=== PATIENT | female | born 1955 | race Caucasian/White ===

== ENCOUNTER 2018-11-22 12:05 | Inpatient (IN) ==
[2018-11-22 12:20] VITALS: BMI 25.8
--- NOTE | 2018-11-22 13:09 | ED.PDOC ---
General ED Provider: Dr. LEO STALEY Chief Complaint: Dizziness Stated Complaint: Dizziness and lightheadedness. Room spinning arround. Nausea no emesis or dyspnea. Denies Chest pain Mode of Arrival: Wheelchair Information Source: Patient Primary Care Provider: SHEY HATCH Nursing and Triage Documentation Reviewed and Agree: Yes System Inflammatory Response Syndrome: Not Applicable Sepsis Protocol: For patient's 13 years and over: Temp is 96.8 and below OR 101 and greater Pulse >90 BPM Resp >20/minute Acutely Altered Mental Status Are patient's symptoms suggestive of a new infection, such as: -Pneumonia -Skin, Soft Tissue -Endocarditis -UTI -Bone, Joint Infection -Implantable Device -Acute Abdominal Infection -Wound Infection -Meningitis -Blood Stream Catheter Infection -Unknown Past Medical History - Past Medical History Last Menstrual Period: menopause - Social History Smoking Status: Current every day smoker, Heavy tobacco smoker Hx Substance Use: No Alcohol Screening: Occasionally Physical Exam - Physical Exam Appearance: Well-appearing, Obese Ill-appearing: Mild Pain Distress: Mild Eyes: MICHAEL (Neg nystagmus ), EOMI, Conjunctiva clear ENT: Ears normal, Nose normal, Oropharynx normal Neck: Supple Respiratory: Airway patent, Breath sounds clear, Breath sounds equal Cardiovascular: RRR, Pulses normal, No rub, No murmur, Tachycardia GI/: Soft, Nontender, No masses, Bowel sounds normal, No Organomegaly Musculoskeletal: Normal strength, ROM intact, No edema, No calf tenderness Skin: Warm, Dry, Normal color Neurological: Sensation intact, Motor intact, Reflexes intact, Alert, Oriented Psychiatric: Affect appropriate, Mood appropriate, Anxious Course - Course Hematology/Chemistry: 11/22/18 12:50 11/22/18 12:50 Orders, Labs, Meds: Lab Review 11/22/18 11/22/18 12:50 12:50 WBC 15.43 H RBC 4.47 Hgb 14.1 Hct 40.9 MCV 91.5 MCH 31.5 H MCHC 34.5 RDW Coeff of Yanna 12.9 Plt Count 244 Immature Gran % (Auto) 0.3 Neut % (Auto) 78.4 Lymph % (Auto) 13.6 Casey % (Auto) 6.5 Eos % (Auto) 0.7 Baso % (Auto) 0.5 Immature Gran # (Auto) 0.1 Neut # (Auto) 12.1 H Lymph # (Auto) 2.1 Casey # (Auto) 1.0 Eos # (Auto) 0.1 Baso # (Auto) 0.1 Sodium 142.9 Potassium 4.18 Chloride 106.1 Carbon Dioxide 25.2 Anion Gap 15.78 BUN 12.5 Creatinine 0.68 Estimated GFR (MDRD) 87.00 BUN/Creatinine Ratio 18.38 Glucose 122.6 H Calcium 8.90 Total Bilirubin 0.38 AST 22.3 ALT 22.9 Alkaline Phosphatase 75.4 Total Creatine Kinase 29.6 L Troponin I < 0.012 Total Protein 7.25 Albumin 4.40 Globulin 2.85 Albumin/Globulin Ratio 1.54 Orders Category Date Time Status EKG-(ED ONLY) Stat CARDIO 11/22/18 13:13 Completed ED APPLY O2 .ONCE EMERGENCY 11/22/18 13:13 Active ED BONE CHAR KILN TENDER APPLIED .ONCE EMERGENCY 11/22/18 13:13 Active ED IV/MEDIPORT/POWERPORT .ONCE EMERGENCY 11/22/18 13:13 Active CBC W/ AUTO DIFF Stat LAB 11/22/18 12:50 Completed COMPREHENSIVE METABOLIC PANEL Stat LAB 11/22/18 12:50 Completed CREATINE KINASE Stat LAB 11/22/18 12:50 Completed TROPONIN I Stat LAB 11/22/18 12:50 Completed 0.9 % Sodium Chloride [Saline Flush] MEDS 11/22/18 13:13 Ordered 1 syr IVF PRN PRN Alprazolam [Xanax] MEDS 11/22/18 14:32 Discontinued 0.5 mg PO ONCE STA Sodium Chloride 0.9% [Sodium Chloride] 1,000 ml MEDS 11/22/18 13:13 Discontinued IV BOLUS CHEST, 1V AP ONLY Stat RADS 11/22/18 13:13 Completed Medications Generic Name Dose Route Start Last Admin Trade Name Freq PRN Reason Stop Dose Admin Sodium Chloride 1 syr 11/22/18 13:13 Saline Flush IVF PRN PRN To flush IV Discontinued Medications Generic Name Dose Route Start Last Admin Trade Name Freq PRN Reason Stop Dose Admin Alprazolam 0.5 mg 11/22/18 14:32 Xanax PO 11/22/18 14:33 ONCE STA Sodium Chloride 1,000 mls @ 1,000 mls/hr 11/22/18 13:13 11/22/18 13:28 Sodium Chloride IV 11/22/18 14:12 1,000 mls/hr BOLUS STA Administration Vital Signs: Temp Pulse Resp BP Pulse Ox 11/22/18 12:14 97.4 F L 74 20 221/105 H 98 NIRU Risk Score NIRU Risk Score: Risk Score Odds of by 30D 0 0.1 (0.1-0.2) 1 0.3 (0.2-0.3) 2 0.4 (0.3-0.5) 3 0.7 (0.6-0.9) 4 1.2 (1.0-1.5) 5 2.2 (1.9-2.6) 6 3.0 (2.5-3.6) 7 4.8 (3.8-6.1) Departure - Departure Time of Disposition: 14:30 Disposition: ADMITTED INPATIENT Discharge Problem: Dizziness, ST segment abnormality, Ischemic heart disease Condition: Fair Pt referred to PMD for follow-up: Yes (DR HATCH FOR ADMISSION) Allergies/Adverse Reactions: Allergies acetaminophen [From Lortab] Adverse Reaction (Verified 11/22/18 12:22) codeine Adverse Reaction (Verified 11/22/18 12:22) hydrochlorothiazide [From Ziac] Adverse Reaction (Verified 11/22/18 12:22) lisinopril Adverse Reaction (Verified 11/22/18 12:22) metronidazole [From Flagyl] Adverse Reaction (Verified 11/22/18 12:22) propoxyphene [From Darvocet-N] Adverse Reaction (Verified 11/22/18 12:22) Home Medications: Ambulatory Orders Alprazolam [Xanax] 0.25 mg PO BID PRN 11/22/18 Atorvastatin Calcium [Lipitor] 40 mg PO DAILY 11/22/18 Esomeprazole Magnesium [Nexium] 40 mg PO DAILY 11/22/18 Estrogens, Conjugated [Premarin Vaginal Cream] 1 applic VG DIRECTED 11/22/18 Multivitamin/Iron/Folic Acid [Centrum Adults Tablet] 1 each PO DAILY 11/22/18 [place]-3/Dha/Epa/Fish Oil [Fish Oil 500 mg Softgel] 1 each PO DAILY 11/22/18 Sucralfate [Carafate] 1 gm PO QID 11/22/18 Disposition Discussed With: Patient, Family Neurological Complaint Exam - Dizziness Complaint/Exam Onset: Gradual Symptoms Are: Still present Timing: Intermittent Episodes Lasting: Minutes Initial Severity: Moderate Current Severity: Moderate Character: Reports: Head spinning, Lightheaded, Weak, Dizzy Aggravating: Reports: Exertion, Headache, Position change, Supine to erect, Change in head position Alleviating: Reports: Rest, Lying down, Closing eyes Associated Signs and Symptoms: Reports: Nausea. Denies: Vomiting, GI blood loss , Visual changes Cardiac Risk Factors: Reports: Hypertension CVA Risk Factors: Reports: None Related Surgical History: Reports: None JVD Present: No Carotid Bruit Present: Yes Nystagmus Present: No Gag Reflex Present: Yes Meningeal Signs Positive: No Focal Weakness: Present: None Focal Sensory Loss: Present: None Gait: Normal Dmlsgp-es-Medh: Normal Findings
[2018-11-22] MEDS ORDERED: SODIUM CHLORIDE 1,000 ML IV STA (13:13)
--- NOTE | 2018-11-22 13:51 | DI ---
EXAM: Portable chest. HISTORY: Dizziness. COMPARISON: None. TECHNIQUE:A single portable AP view of the chest. FINDINGS: Lungs: The lung voulmes are normal. The lungs are clear without consolidation or effusion. There are no suspicious nodules. The pulmonary interstitium is within normal limits. There is no pneumothorax. Cardiovascular: The heart size and pulmonary vasculature is normal.. The aorta is unremarkable. Gissell: Normal. Osseous structures. Normal for age. IMPRESSION: No acute pulmonary disease.
[2018-11-22] MEDS ORDERED: XANAX PO STA (14:32)
[2018-11-22] MEDS ORDERED: SODIUM CHLORIDE 500 ML IV STA (14:50)
[2018-11-22] MEDS ORDERED: XANAX PO PRN (15:23)
[2018-11-22] MEDS ORDERED: LOVENOX ONE (16:36)
[2018-11-22] MEDS ORDERED: LOPRESSOR ONE (16:36)
[2018-11-22] MEDS ORDERED: CARAFATE ONE (16:37)
[2018-11-22] MEDS ORDERED: VALIUM ONE (16:37)
[2018-11-22] MEDS ORDERED: ANTIVERT ONE (16:37)
[2018-11-22] MEDS ORDERED: COZAAR ONE (16:37)
[2018-11-22] MEDS ORDERED: LIPITOR ONE (16:37)
[2018-11-22] MEDS ORDERED: VASOTEC IV ONE (16:37)
[2018-11-22] MEDS: COZAAR PO SCH (16:38)
[2018-11-22] MEDS: VASOTEC IV IVP PRN (16:38)
[2018-11-22] MEDS: VALIUM PO SCH ×2 (16:39→21:40)
[2018-11-22] MEDS: LOPRESSOR PO SCH ×2 (16:39→21:40)
[2018-11-22] MEDS: ANTIVERT PO SCH ×2 (16:39→21:38)
[2018-11-22] MEDS: LIPITOR PO SCH (16:41)
[2018-11-22] MEDS: LOVENOX SUBCUT SCH (16:41)
[2018-11-22] MEDS ORDERED: NON-FORMULARY MEDICATION (Atorvastatin Calcium [Lipitor] 40 MG) PO SCH (17:00)
[2018-11-22] MEDS ORDERED: FISH OIL PO SCH (17:00)
[2018-11-22] MEDS ORDERED: CARAFATE PO SCH (17:00)
[2018-11-22] MEDS ORDERED: EPA PO SCH (17:00)
[2018-11-22] MEDS ORDERED: OMEGA PO SCH (17:00)
[2018-11-22] MEDS ORDERED: DHA PO SCH (17:00)
[2018-11-22] MEDS: OMEGA-3 FISH OIL PO SCH (17:40)
[2018-11-22] MEDS: XANAX PO SCH (21:40)
[2018-11-22] MEDS: CARAFATE PO SCH (21:41)
[2018-11-23] MEDS: SODIUM CHLORIDE 1,000 ML IV SCH ×2 (02:03→06:16)
[2018-11-23] MEDS: VASOTEC IV IVP PRN (03:16)
[2018-11-23] MEDS: PROTONIX PO SCH (06:13)
[2018-11-23] MEDS: CARAFATE PO SCH ×4 (06:13→20:46)
[2018-11-23] MEDS: MULTIVITAMIN TABLET PO SCH (08:18)
[2018-11-23] MEDS: COZAAR PO SCH (08:19)
[2018-11-23] MEDS: LOPRESSOR PO SCH ×2 (08:19→20:47)
[2018-11-23] MEDS: XANAX PO SCH ×2 (08:19→20:47)
[2018-11-23] MEDS: OMEGA-3 FISH OIL PO SCH ×2 (08:19→16:22)
[2018-11-23] MEDS: ANTIVERT PO SCH ×3 (08:19→20:47)
[2018-11-23] MEDS: LOVENOX SUBCUT SCH (08:20)
[2018-11-23] MEDS: VALIUM PO SCH ×4 (08:36→20:47)
[2018-11-23] MEDS ORDERED: FISH OIL PO SCH (09:00)
[2018-11-23] MEDS ORDERED: IRON PO SCH (09:00)
[2018-11-23] MEDS ORDERED: MULTIVITAMIN PO SCH (09:00)
[2018-11-23] MEDS ORDERED: DHA PO SCH (09:00)
[2018-11-23] MEDS ORDERED: FOLIC ACID PO SCH (09:00)
[2018-11-23] MEDS ORDERED: OMEGA PO SCH (09:00)
[2018-11-23] MEDS ORDERED: OMEGA-3 FISH OIL PO SCH (09:00)
[2018-11-23] MEDS ORDERED: EPA PO SCH (09:00)
[2018-11-23] MEDS ORDERED: NON-FORMULARY MEDICATION (Esomeprazole Magnesium [Nexium] 40 MG) PO SCH (09:00)
[2018-11-23] MEDS ORDERED: NICODERM 21 MG TD ONE (15:00)
[2018-11-23] MEDS: NICODERM 21 MG TD SCH (15:04)
[2018-11-23] MEDS: LIPITOR PO SCH (16:22)
[2018-11-24] MEDS: PROTONIX PO SCH (06:30)
[2018-11-24] MEDS: CARAFATE PO SCH ×4 (06:30→21:33)
[2018-11-24] MEDS: ANTIVERT PO SCH ×3 (09:09→21:33)
[2018-11-24] MEDS: MULTIVITAMIN TABLET PO SCH (09:09)
[2018-11-24] MEDS: VALIUM PO SCH ×3 (09:09→21:33)
[2018-11-24] MEDS: OMEGA-3 FISH OIL PO SCH ×2 (09:09→16:27)
[2018-11-24] MEDS: LOPRESSOR PO SCH ×2 (09:09→21:34)
[2018-11-24] MEDS: XANAX PO SCH ×2 (09:09→21:33)
[2018-11-24] MEDS: COZAAR PO SCH (09:10)
[2018-11-24] MEDS: LOVENOX SUBCUT SCH (09:11)
[2018-11-24] MEDS: NICODERM 21 MG TD SCH (09:12)
--- NOTE | 2018-11-24 09:23 | PCM.PROG ---
Attending Provider: ATTENDING PROVIDER: Dr. SHEY HATCH DATE OF SERVICE: 11/24/18 SUBJECTIVE: This 63 year old WHITE/ F was hospitalized 11/22/18 with vertigo hypertension and possibility of ischemia with abnormal EKG. No acute ischemia. Cardiac markers are normal. No symptoms of CHF or coronary insufficiency. Vertigo controlled with Antivert. Blood pressure has been under control with Lopressor and Cozaar. REVIEW OF SYSTEMS: CONSTITUTIONAL: No night sweats. No fatigue, malaise, lethargy. No fever or chills. HEENT: Eyes: No visual changes. No eye pain. No eye discharge. ENT: No runny nose. No epistaxis. No sinus pain. No odynophagia. No congestion. RESPIRATORY: No cough, no congestion. No hemoptysis. No shortness of breath. CARDIOVASCULAR: No angina symptoms. No CHF symptoms. No atypical chest pain for CAD. No palpitations. No orthopnea.. GASTROINTESTINAL: No abdominal pain. No nausea or vomiting. No diarrhea or constipation. No hematemesis. No hematochezia. GENITOURINARY: No urgency. No frequency. No dysuria. No hematuria. No obstructive symptoms. No discharge. No pain. No significant abnormal bleeding. MUSCULOSKELETAL: No musculoskeletal pain; no joint swelling. NEUROLOGICAL: Awake, alert, oriented to time, place and person. No headache. No neck pain. No syncope. No seizures. No dizziness. PSYCHIATRIC: Not anxious. No depression. No suicidal thoughts. No homicidal thoughts. SKIN: No rash. No lesions. No wounds. ENDOCRINE: No unexplained weight loss. No weight gain. HEMATOLOGIC/LYMPHATIC: No anemia. No purpura. No petechiae. No prolonged or excessive bleeding. No palpable lymph nodes. PHYSICAL EXAMINATION: GENERAL: The patient is awake, alert and oriented, lying in bed in no distress. VITAL SIGNS: Temperature 97.7 F, Pulse 67, Respiratory Rate 16, BP 145/82, Pulse Ox 98% HEENT: Head normocephalic, atraumatic. Eyes: Extraocular muscles are intact. Pupils are equal, round and reactive to light and accommodation. Ears: No lesions. Nose appeared normal. Throat: No exudate or erythema. NECK: Supple. No JVD, no carotid bruit. No lymphadenopathy or thyromegaly. LUNGS: Decreased breath sounds. Clear to auscultation. Percussion note normal. Chest symmetrical. HEART: S1, S2, no S3. No murmurs. No cyanosis or clubbing. No ascites. Pulses: Dorsalis pedis and posterior tibial pulses +2 both sides. ABDOMEN: Soft. Non-tender. Bowel sounds active. No CVA tenderness. No mass felt. EXTREMITIES: No edema. Full range of motion of all extremities, equal. NEUROLOGIC: No focal deficit. Cranial nerves II through XII are grossly intact. No headache, no double vision or headache. SKIN: Warm and dry. Intact. Turgor-normal. LYMPHATIC: No palpable lymph nodes/no lymphedema. MUSCULOSKELETAL: Normal joints with no swelling. Muscle tone is normal. LAB REVIEW: 11/24/18 04:50 11/24/18 04:50 11/24/18 04:50: Sodium 143.7, Potassium 3.68, Chloride 109.3 H, Carbon Dioxide 26.0, Anion Gap 12.08, BUN 7.6, Creatinine 0.57 L, Estimated GFR (MDRD) 107.00, BUN/Creatinine Ratio 13.33, Glucose 100.6, Calcium 8.47, Total Bilirubin 0.29, AST 18.2, ALT 20.8, Alkaline Phosphatase 61.6, Total Protein 6.25 L, Albumin 3.69, Globulin 2.56, Albumin/Globulin Ratio 1.44 11/24/18 04:50: WBC 8.82, RBC 4.15 L, Hgb 13.0, Hct 38.0, MCV 91.6, MCH 31.3 H, MCHC 34.2, RDW Coeff of Yanna 12.7, Plt Count 205, Immature Gran % (Auto) 0.2, Neut % (Auto) 47.7, Lymph % (Auto) 40.4, [place] % (Auto) 8.7, Eos % (Auto) 2.3, Baso % (Auto) 0.7, Immature Gran # (Auto) 0.0, Neut # (Auto) 4.2, Lymph # (Auto ) 3.6 H, [place] # (Auto) 0.8, Eos # (Auto) 0.2, Baso # (Auto) 0.1 ASSESSMENT: Please see below. 1. Vertigo, resolving. 2. Hypertension, under control 3. Dyslipidemia 4. EKG with non-specific ST-T wave , negative cardiac markers 5. Smoking with chronic lung disease PLAN: 1. Discharge home with Lopressor and Cozaar 2. Continue Lipitor and fish oil 3. PFT pending 4. Counseling for smoking done 5. Risk factor for coronary artery disease 6. BMI 26 which is acceptable. Plan and coordination of the patient's care discussed in the presence of Market Development Specialist and nurse. CONDITION: Stable. SCRIBED BY: KIMBERLYN CRUM Fan Engine Engineer scribed while in presence of service performed by Dr. SHEY HATCH on 11/24/18 ([id number])
--- NOTE | 2018-11-24 10:28 | ECHO2D ---
Date of Exam: 11/23/18 Ordering Physician: DR. SHEY HATCH Room #: 109 Reason for Echo: DIZZINESS, ST SEGMENT ABNORMALITY, HTN, ISCHEMIC HEART DISEASE M-Mode Normal Adult Results LV Dimensions Normal Adult Results AoV Opening excursions >1.6 >1.6 LVEDD-base- 3.5-5.8 3.9 Ao root dimensions 2.0-3.7 3.1 LVESD-base- 3.1-4.6 L. Atrium dimensions 1.9-3.8 4.0 Post. Wall thickness 0.8-1.1 1.1 IV septum (thickness) 0.7-1.2 1.1 Post. Wall excursion 0.72-1.3 NORMAL Septal motion NORMAL Systolic motion R. Ventricular cavity 1.5-2.0 NORMAL LVEF 60% 60% Paradoxical septal wall motion NORMAL 2-D : 2-D M Mode Echocardiogram was performed using apical four chamber and left parasternal long and short axis views. Mitral, tricuspid and aortic valves appear to be normal. Contractility of the left ventricle seems to be normal, so is the cavity size. Left atrial cavity size and aortic root appear to be normal. There is no pericardial effusion. There is no thrombus noted in the left ventricular or left aortic cavity. No mitral valve prolapse noted. M-MODE: MV: NORMAL AV: NORMAL TV: NORMAL PV: CHAMBER SIZE: NORMAL WALL MOTION: NORMAL PERICARDIUM: NORMAL INTERPRETATION: 1. NORMAL 2 "D" "M" MODE [facility]
--- NOTE | 2018-11-24 13:59 | US ---
EXAM: Carotid ultrasound HISTORY: Dizziness, Lightheaded COMPARISON: None TECHNIQUE: Carotid ultrasound was performed using Duplex imaging with perez scale, color, and Doppler imaging performed. FINDINGS: Right carotid: There is atherosclerotic plaque in the bulb/internal carotid artery with visual estim ate of narrowing less than 50%. Peak systolic velocity measurement in the right internal carotid art osman is 0.97 meters per second. End-diastolic velocity measurement in the right internal carotid igor ry is 0.26 meters per second. Right internal to common carotid artery peak systolic velocity ratio i s 1.3. Flow in the right vertebral artery is antegrade. Left carotid: There is atherosclerotic plaque in the bulb/internal carotid artery with visual estima te of narrowing less than 50%. Peak systolic velocity measurement in the left internal carotid arter y is 0.79 meters per second. End-diastolic velocity measurement in the left internal carotid artery is 0.26 meters per second. Left internal to common carotid artery peak systolic velocity ratio measu res 1.6. Flow in the left vertebral artery is antegrade. IMPRESSION: 1. Right internal carotid: Mild (less than 50%) stenosis 2. Left internal carotid: Mild (less than 50%) stenosis
[2018-11-24] MEDS: LIPITOR PO SCH (16:27)
[2018-11-25] MEDS ORDERED: LOPRESSOR PO STA (05:54)
[2018-11-25] MEDS ORDERED: COZAAR PO STA (05:55)
[2018-11-25] MEDS: CARAFATE PO SCH ×2 (05:57→11:41)
[2018-11-25] MEDS: PROTONIX PO SCH (05:58)
[2018-11-25] MEDS ORDERED: PREMARIN VAGINAL CREAM VAGINAL SCH (09:00)
[2018-11-25] MEDS: LOPRESSOR PO SCH (09:41)
[2018-11-25] MEDS: COZAAR PO SCH (09:41)
[2018-11-25] MEDS: XANAX PO SCH (09:42)
[2018-11-25] MEDS: ANTIVERT PO SCH (09:43)
[2018-11-25] MEDS: VALIUM PO SCH (09:43)
--- NOTE | 2018-11-25 10:52 | PN ---
DATE OF SERVICE: 11/22/18 SUBJECTIVE: The patient was seen and examined today in the her room, 109. She was hospitalized after being treated in the emergency room with severe vertigo type of symptoms with nausea. CT scan of the head was negative which was reviewed. The patient had blood pressure of 220. The patient has been started on Lopressor 25mg twice a day and Cozaar 100mg PO daily. The patient's EKG was somewhat abnormal with sinus rhythm with anterior wall ischemia type of changes which I feel like is nonspecific. The patient has history of hypertension for which she has refused any treatment. She has severe dyslipidemia and for that she has refused treatment for a long time. She is a heavy smoker. Considering multiple risk factors and abnormal EKG she was advised hospitalization along with her severe hypertension which needed to be controlled. REVIEW OF SYSTEMS: CONSTITUTIONAL: No night sweats. No fatigue, malaise, lethargy. No fever or chills. HEENT: Eyes: No visual changes. No eye pain. No eye discharge. ENT: No runny nose. No epistaxis. No sinus pain. No sore throat. No odynophagia. No congestion. RESPIRATORY: No cough, no congestion. No hemoptysis. No shortness of breath. CARDIOVASCULAR: No angina symptoms. No CHF symptoms. No atypical chest pain for CAD. No palpitations. No PND. No orthopnea. GASTROINTESTINAL: No abdominal pain. No nausea or vomiting. No diarrhea or constipation. No hematemesis. No hematochezia. GENITOURINARY: No urgency. No frequency. No dysuria. No hematuria. No obstructive symptoms. No discharge. No pain. No significant abnormal bleeding. MUSCULOSKELETAL: No musculoskeletal pain; no joint swelling. NEUROLOGICAL: No headache. No neck pain. No syncope. No seizures. No dizziness. PSYCHIATRIC: Not anxious. No depression. No suicidal thoughts. No homicidal thoughts. SKIN: No rash. No lesions. No wounds. ENDOCRINE: No unexplained weight loss. No weight gain. HEMATOLOGIC/LYMPHATIC: No anemia. No purpura. No petechiae. No prolonged or excessive bleeding. No palpable lymph nodes. PHYSICAL EXAMINATION: GENERAL: The patient is oriented to time, place and person. HEENT: Head normocephalic, atraumatic. Eyes: Extraocular muscles are intact. Pupils are equal, round and reactive to light and accommodation. Ears: No lesions. Nose appeared normal. Throat: No exudate or erythema. NECK: Supple. No JVD, no carotid bruit. No lymphadenopathy or thyromegaly. LUNGS: Clear to auscultation. Percussion note normal. Chest symmetrical. HEART: S1, S2, no S3. No murmurs. No cyanosis or clubbing. No ascites. Pulses: Dorsalis pedis and posterior tibial pulses +1 to +2 bilaterally. ABDOMEN: Soft. Nontender. Bowel sounds active. No CVA tenderness. No mass felt. EXTREMITIES: No edema. Full range of motion of all extremities, equal. NEUROLOGIC: No focal deficit. Cranial nerves II through XII are grossly intact. No headache, no double vision or headache. SKIN: Not dry. Intact. Turgor - normal. LYMPHATIC: No palpable lymph nodes/no lymphedema. MUSCULOSKELETAL: Normal joints with no swelling. Muscle tone is normal. ASSESSMENT: 1. Vertigo with severe dizziness. 2. Severe hypertension 3. Abnormal EKG 4. Dyslipidemia 5. Heavy smoking with chronic lung disease PLAN: 1. Counseling for smoking 2. CAD risk factors discussed and discussed how to modify them. 3. Cozaar 1mg PO daily 4. Lopressor 25mg PO twice a day 5. Lovenox started 6. Telemetry 7. Cardiac Markers 8. EKGs 9. Echo, Stress echo sestamibi on Saturday CONDITION: Stable. TIME SPENT: More than 30 minutes. Plan and coordination of the patient's care discussed in the presence of nurse. LENA
--- NOTE | 2018-11-25 11:07 | NM ---
Cardiac Stress Test HISTORY: T-wave abnormality, abnormal EKG suggesting anterior ischemia. Hypertension. Hypercholest erolemia. COMPARISON: None of this type. TECHNIQUE: Resting: The patient was injected with 3.5 mCi of thallium 201 chloride intravenously after which a "resting" SPECT study of the heart was performed. Stress: The patient was stressed using a Jose protocol and at the appropriate time injected with 30 .2 mCi of 99m technetium Sestamibi (Cardiolite) after which a "stress" SPECT study of the heart was p erformed. Gated images of the heart were also obtained to assess wall motion and calculate ejection fraction. For details of the stress protocol employed, reference is made to the separate report of t performing physician. FINDINGS: The stress perfusion images demonstrate a region of modestly decreased activity in the dis levi inferolateral wall and a portion which appears to improve at rest suggesting ischemia. The resti ng perfusion images demonstrate no evidence of significant redistribution/ischemia elsewhere. The left ventricular ejection fraction (LVEF) is 68 %. IMPRESSION: 1. Left ventricular myocardial perfusion demonstrates a small region of suspected ischemia in the di stal inferolateral wall segment. 2. The left ventricular ejection fraction (LVEF) is 68 %.
--- NOTE | 2018-11-25 11:39 | PN ---
DATE OF SERVICE: 11/23/18 SUBJECTIVE: The patient was hospitalized yesterday with Vertigo which has been more less controlled with no vertigo, no nausea and no vomiting. The patient is on Antivert and Valium. The patient had systolic blood pressure of 220 which is now 130. She have been on low dose of Lopressor and Cozaar. The patient had some questionable change in the anterior leads which I thought was nonspecific with negative cardiac markers. Repeat EKG's are unchanged. The patient had an echocardiogram done today which shows borderline LVH with borderline LA cavity enlargement, normal valvular structure, normal LV contractility. The patient will undergo stress echo sestamibi as an outpatient, she agreed for that. The patient will also undergo carotid scan with PFT. Counseling for smoking done. REVIEW OF SYSTEMS: CONSTITUTIONAL: No night sweats. No fatigue, malaise, lethargy. No fever or chills. HEENT: Eyes: No visual changes. No eye pain. No eye discharge. ENT: No runny nose. No epistaxis. No sinus pain. No sore throat. No odynophagia. No congestion. RESPIRATORY: No cough, no congestion. No hemoptysis. No shortness of breath. CARDIOVASCULAR: No angina symptoms. No CHF symptoms. No atypical chest pain for CAD. No palpitations. No PND. No orthopnea. GASTROINTESTINAL: No abdominal pain. No nausea or vomiting. No diarrhea or constipation. No hematemesis. No hematochezia. GENITOURINARY: No urgency. No frequency. No dysuria. No hematuria. No obstructive symptoms. No discharge. No pain. No significant abnormal bleeding. MUSCULOSKELETAL: No musculoskeletal pain; no joint swelling. NEUROLOGICAL: No headache. No neck pain. No syncope. No seizures. No dizziness. PSYCHIATRIC: Not anxious. No depression. No suicidal thoughts. No homicidal thoughts. SKIN: No rash. No lesions. No wounds. ENDOCRINE: No unexplained weight loss. No weight gain. HEMATOLOGIC/LYMPHATIC: No anemia. No purpura. No petechiae. No prolonged or excessive bleeding. No palpable lymph nodes. PHYSICAL EXAMINATION: HEENT: Head normocephalic, atraumatic. Eyes: Extraocular muscles are intact. Pupils are equal, round and reactive to light and accommodation. Ears: No lesions. Nose appeared normal. Throat: No exudate or erythema. NECK: Supple. No JVD, no carotid bruit. No lymphadenopathy or thyromegaly. LUNGS: Clear to auscultation. Percussion note normal. Chest symmetrical. HEART: S1, S2, no S3. No murmurs. No cyanosis or clubbing. No ascites. Pulses: Dorsalis pedis and posterior tibial pulses +1 to +2 bilaterally. ABDOMEN: Soft. Nontender. Bowel sounds active. No CVA tenderness. No mass felt. EXTREMITIES: No edema. Full range of motion of all extremities, equal. NEUROLOGIC: No focal deficit. Cranial nerves II through XII are grossly intact. No headache, no double vision or headache. SKIN: Not dry. Intact. Turgor - normal. LYMPHATIC: No palpable lymph nodes/no lymphedema. MUSCULOSKELETAL: Normal joints with no swelling. Muscle tone is normal. ASSESSMENT: 1. Vertigo resolved 2. Hypertension, under control 3. Dyslipidemia, needs to be treated. Explained to the patient and the patient is agreeable. 4. Abnormal EKG with multiple risk factors with coronary artery disease PLAN: 1. Stress echo sestamibi as an outpatient and she is agreeable for that. CONDITION: Stable. TIME SPENT: More than 30 minutes. Plan and coordination of the patient's care discussed in the presence of nurse. LENA
[2018-11-25] MEDS: OMEGA-3 FISH OIL PO SCH (11:40)
[2018-11-25] MEDS: MULTIVITAMIN TABLET PO SCH (11:40)
[2018-11-25] MEDS: LOVENOX SUBCUT SCH (11:43)
[2018-11-25] MEDS: NICODERM 21 MG TD SCH (11:44)
--- NOTE | 2018-11-25 12:16 | CM.DICTOOL ---
ADMISSION: 11/22/18 14:53 DISCHARGE: NOVEMBER 25, 2018 DATE OF SERVICE: 11/25/18 FINAL DIAGNOSIS HYPERTENSION VERTIGO POSITIVE STRESS SESTAMIBI POSITIVE FOR ISCHEMIA DYLIPIDEMIA ANXIETY TOBACCO ABUSE NON-COMPLIANCE LAST VITALS Temp Pulse Resp BP Pulse Ox 98.0 F 66 16 135/77 95 11/25/18 05:15 11/25/18 05:15 11/25/18 05:15 11/25/18 05:15 11/25/18 05:15 TAKE THESE MEDICATIONS AT HOME Baby ASA 81 mg PO Daily Alprazolam (Xanax) 0.25 mg PO BID PRN Last Admin: 11/25/18 09:42 Dose: 0.25 mg Atorvastatin Calcium (Lipitor) 40 mg PO QPM [facility] Last Admin: 11/24/18 16:27 Dose: 40 mg Diazepam (Valium) 2 mg PO TID [facility] Last Admin: 11/25/18 09:43 Dose: 2 mg Estrogens Conjugated (Premarin Vaginal Cream) 1 applic VAGINAL TuFr@0900 [facility] Fish Oil ([place]-3 Fish Oil) 1,000 mg PO QPM [facility] Last Admin: 11/24/18 16:27 Dose: 1,000 mg Fish Oil ([place]-3 Fish Oil) 2,000 mg PO DAILY [facility] Last Admin: 11/24/18 09:09 Dose: 1,000 mg Losartan Potassium (Cozaar) 100 mg PO DAILY [facility] Last Admin: 11/25/18 09:41 Dose: Not Given Meclizine HCl (Antivert) 25 mg PO TID [facility] Last Admin: 11/25/18 09:43 Dose: 25 mg Metoprolol Tartrate (Lopressor) 25 mg PO BID [facility] Last Admin: 11/25/18 09:41 Dose: Not Given Multivitamins (Multivitamin Tablet) 1 tab PO DAILY [facility] Last Admin: 11/24/18 09:09 Dose: 1 tab Esomeprazole Magnesium (Nexium) 40 mg PO QDAC [facility] Last Admin: 11/25/18 05:58 Dose: 40 mg Sucralfate (Carafate) 1 gm PO ACHS [facility] Last Admin: 11/25/18 05:57 Dose: 1 gm ALLERGIES acetaminophen [From Lortab] Adverse Reaction (Verified 11/22/18 12:22) codeine Adverse Reaction (Verified 11/22/18 12:22) hydrochlorothiazide [From Ziac] Adverse Reaction (Verified 11/22/18 12:22) lisinopril Adverse Reaction (Verified 11/22/18 12:22) metronidazole [From Flagyl] Adverse Reaction (Verified 11/22/18 12:22) propoxyphene [From Darvocet-N] Adverse Reaction (Verified 11/22/18 12:22) DISCONTINUED MEDICATIONS None NEW PRESCRIPTIONS: LOPRESSOR 25 MG TAKE 1 TWICE A DAY FOR HYPERTENSION COZAAR 100 MG TAKE 1 DAILY FOR HYPERTENSION ANTIVERT 25 MG TAKE 1 THREE TIMES A DAY PRN DIZZINESS BABY ASPIRIN 81 MG TAKE 1 DAILY SMOKING: ADVISED TO STOP SMOKING DISEASE SPECIFIC EDUCATION: HYPERTENSION VERTIGO NEW MEDICATIONS REDUCTION OF RISK FACTORS, INCLUDING SMOKING APPOINTMENT LAB REVIEW: 11/25/18 04:10 11/25/18 04:10 11/25/18 04:10: Sodium 143.1, Potassium 3.78, Chloride 106.3, Carbon Dioxide 27.9, Anion Gap 12.68, BUN 11.1, Creatinine 0.69, Estimated GFR (MDRD) 86.00, BUN/Creatinine Ratio 16.08, Glucose 99.2, Calcium 8.73, Total Bilirubin 0.30, AST 22.7, ALT 25.5, Alkaline Phosphatase 61.7, Total Protein 6.58, Albumin 3.89 , Globulin 2.69, Albumin/Globulin Ratio 1.44 11/25/18 04:10: WBC 8.82, RBC 4.42, Hgb 13.6, Hct 40.5, MCV 91.6, MCH 30.8, MCHC 33.6, RDW Coeff of Yanna 12.7, Plt Count 219, Immature Gran % (Auto) 0.1, Neut % (Auto) 51.1, Lymph % (Auto) 37.2, Ballard % (Auto) 8.7, Eos % (Auto) 2.0, Baso % (Auto) 0.9, Immature Gran # (Auto) 0.0, Neut # (Auto) 4.5, Lymph # (Auto ) 3.3, Ballard # (Auto) 0.8, Eos # (Auto) 0.2, Baso # (Auto) 0.1 PLAN: DISCHARGE HOME DIET: HEART HEALTHY ACTIVITY: GRADUALLY RESUME TOLERATED CHANGE POSITIONS SLOWLY NO DRIVING IF DIZZY AN APPOINTMENT IS SCHEDULED WITH DR. HATCH/JAVIER VILLALTA,, BRICK PAVER ON AT 10 AM MRS. GEIGER IS ALERT AND ORIENTED X 3. MRS. GEIGER LIVES AT HOME WITH HER SPOUSE , MACARIO. SHE DESIRES TO GO HOME TODAY. HER DAUGHTER HAS BEEN PRESENT THIS MORNING. SHE IS INDEPENDENT WITH ALL ACTIVITIES OF DAILY LIVING. SHE IS AMBULATORY WITHOUT ASSISANCE OF THE NURSING STAFF OR ASSISTIVE DEVICE. MEAL INTAKES ARE FAIR, 25-40%. HER APPETITE IS DECREASED DUE TO NOT LIKING THE FOOD. SHE DENIES CHEST PAIN OR SHORTNESS OF AIR. COLOR IS GOOD, SKIN IS WARM/DRY WITH GOOD SKIN TURGOR. NO OPEN WOUNDS NOTED. SHEY HATCH MD
[2018-11-25 13:52] VITALS: BP 167/80; TEMP 98.1
--- NOTE | 2018-11-26 12:55 | STRESSECHO ---
Date of Test: 11/25/18 Ordering Physician: DR. SHEY HATCH Occupation: RETIRED Reason for Exam: ISCHEMIC HEART DISEASE, HTN, HYPERCHOLESTEROLEMIA Smoking History: 30 PK/YR Height: 66" Weight: 160 LBS Current Medications: XANAX, LIPITOR, NEXIUM, PREMARIN, CARAFATE Resting EKG: SINUS RHYTHM, NO ACUTE CHANGES Target Heart Rate: 133/157 S-T SEGMENT STAGE MPH/GRADE HEART RATE BPM BLOOD PRESSURE MMHG RHYTHM +/- ELEVATION DEPRESSION SYMPTOMS AT REST 60 BPM 142/88 MMHG SR X NONE 1 1.7/10% 115 BPM 176/90 MMHG SR X NONE 2 2.5/12% 3 3.4/14% 4 4.2/16% 5 5.0/18% Immediately After 133 BPM SR X SHORT OF BREATH Minutes Post Exercise 3:00 76 BPM 176/80 BPM SR X NO COMMENTS Minutes Post Exercise DURATION OF EXERCISE: 4:15 MAXIMUM HEART RATE REACHED: 133 BPM REASON FOR TERMINATION: SHORT OF BREATH 98% OXYGEN SATURATION ON ROOM AIR WITH EXERCISE INTERPRETATION: 1. TEST POSITIVE FOR ISCHEMIC ST-T WAVE CHANGES 2. NO CHEST PAIN OR DISCOMFORT 3. NO ARRHYTHMIAS 4. BLOOD PRESSURE RESPONSE: BORDERLINE HYPERTENSION WITH EXERCISE NORMAL LEFT VENTRICULAR CONTRACTILITY--RESTING AND POST EXERCISE SESTAMIBI TO FOLLOW MTDD
--- NOTE | 2018-11-26 12:57 | ECHOSTRESS ---
Date of Exam: 11/25/18 Ordering Physician: DR. SHEY HATCH Reason for Echo: ABNORMAL EKG, HTN, HYPERCHOLESTEROLEMIA, SMOKING M-Mode Normal Adult Results LV Dimensions Normal Adult Results AoV Opening excursions >1.6 LVEDD-base- 3.5-5.8 Ao root dimensions 2.0-3.7 LVESD-base- 3.1-4.6 L. Atrium dimensions 1.9-3.8 Post. Wall thickness 0.8-1.1 IV septum (thickness) 0.7-1.2 Post. Wall excursion 0.72-1.3 Septal motion Systolic motion R. Ventricular cavity 1.5-2.0 LVEF 60% Paradoxical septal wall motion 2-D: NORMAL LEFT VENTRICULAR CONTRACTILITY--RESTING AND POST EXERCISE M-MODE: MV: AV: TV: PV: CHAMBER SIZE: WALL MOTION: NORMAL LEFT VENTRICULAR CONTRACTILITY--RESTING AND POST EXERCISE PERICARDIUM: INTERPRETATION: 1. NORMAL LEFT VENTRICULAR CONTRACTILITY--RESTING AND POST EXERCISE MTDD
--- NOTE | 2018-11-28 09:37 | PN ---
DATE OF SERVICE: 11/25/18 SUBJECTIVE: 63-year-old white female hospitalized with vertigo type of feeling. The patient had hypertension which has been brought under control. The patient's EKG was abnormal with nonspecific ST-T wave changes, practically remained unchanged. The cardiac markers were negative for any acute myocardial event. Telemetry did not show any ST-T wave change. The patient does not have any symptoms of coronary insufficiency. No CHF. PHYSICAL EXAMINATION: GENERAL: The patient is oriented to time, place and person. V/S: Temperature 98, pulse 66, respiratory rate 16, BP 135/77, pulse ox 95%. HEENT: Normal. NECK: Supple. CVS: S1, S2, no S3. LUNGS: Decreased breath sounds but clear. HEART: S1, S2, no S3. No murmurs. No cyanosis or clubbing. No ascites. Pulses: Dorsalis pedis and posterior tibial pulses +1 to +2 bilaterally. ABDOMEN: Soft. Nontender. Bowel sounds active. No CVA tenderness. No mass felt. EXTREMITIES: No edema. Full range of motion of all extremities, equal. NEUROLOGIC: No focal deficit. Cranial nerves II through XII are grossly intact. No headache, no double vision or headache. SKIN: Not dry. Intact. Turgor - normal. LYMPHATIC: No palpable lymph nodes/no lymphedema. MUSCULOSKELETAL: Normal joints with no swelling. Muscle tone is normal. LABS: Hemoglobin 13.6, hematocrit 40, WBC 8,800, normal differential. Creatinine 0.6, BUN 11, potassium 3.7. ASSESSMENT: 1. CARDIOVASCULAR STATUS STABLE, MULTIPLE RISK FACTORS FOR CORONARY INSUFFICIENCY, POORLY TREATED SO FAR WITH PATIENT'S CHOICE OF NOT TAKING ANY MEDICINES FOR IT. PLAN: 1. Stress echo/Sestamibi today. 2. The patient's cardiovascular status, neurologically status all stable. TIME SPENT: More than 30 minutes. Plan and coordination of the patient's care discussed in the presence of nurse. LENA
--- NOTE | 2018-11-28 10:00 | DS ---
DATE OF SERVICE: 11/25/18 FINAL DIAGNOSIS: 1. HYPERTENSION 2. VERTIGO 3. POSITIVE STRESS SESTAMIBI POSITIVE FOR ISCHEMIA 4. DYSLIPIDEMIA 5. ANXIETY 6. TOBACCO ABUSE 7. NON-COMPLIANCE LAST VITAL SIGNS: Temperature 98.0, pulse 66, respiratory rate 16, BP 135/77, pulse ox 95 DISCHARGE INSTRUCTIONS: Followup appointment is scheduled with Dr. Armstrong/Suzanna Sanchez APRN on November 26 at 10 a.m. MEDICATIONS AT DISCHARGE: Baby ASA 81 mg p.o. daily Alprazolam (Xanax) 0.25 mg p.o. b.i.d. p.r.n. Atorvastatin (Lipitor) 40 mg p.o. q.p.m. [facility] KATE Diazepam (Valium) 2 mg p.o. t.i.d. [facility] Estrogens Conjugated (Premarin Vaginal Cream) one applicator Vaginal Tu, Sat @ 0900 [facility] Fish Oil ([place] 3 Fish Oil) 2000 mg p.o. daily [facility] Losartan Potassium (Cozaar) 100 mg p.o. daily [facility] Meclizine (Antivert) 25 mg p.o. t.i.d. [facility] K[facility] Metoprolol (Lopressor) 25 mg p.o. b.i.d. [facility] Multivitamin one tab p.o. daily [facility] Esomeprazole Magnesium (Nexium) 40 mg p.o. q.d a.c. [facility] K[facility] Sucralfate (Carafate) 1 gm p.o. a.c. h.s. [facility] NEW PRESCRIPTIONS: Lopressor 25 mg take one twice a day for hypertension Cozaar 100 mg take one daily for hypertension Antivert 25 mg take one three times a day p.r.n. dizziness Baby Aspirin 81 mg take one daily DIET INSTRUCTIONS: Heart Healthy ACTIVITY: Gradually resume as tolerated; change positions slowly; no driving if dizzy SMOKING: Advised to stop smoking DISEASE SPECIFIC EDUCATION: Hypertension Vertigo New medications Reduction of risk factors, including smoking Appointment HOSPITAL COURSE: 63-year-old white female hospitalized with vertigo and severe hypertension. The patient's EKG incidentally showed nonspecific type ST-T wave change, possibility of ischemia. The patient's EKG remained unchanged. Cardiac markers are all negative. Telemetry did not show any arrhythmias or any other ST-T wave change. The patient's echo was normal with borderline LVH. The patient's stress Sestamibi echo was done. Stress test was positive for ischemia. Echo showed normal LV contractility, resting and post exercise. Sestamibi showed a small reversible inferolateral wall ischemia. The patient practically is asymptomatic. No symptoms of coronary insufficiency. She was explained about this finding. She was advised to quit smoking. Counseling for smoking done. Also advised to reduce her non HDL to less than 70. The patient doesn't taken her medication as prescribed. Blood pressure was also out of control. She was put on Lopressor and Cozaar. Advised to take Baby Aspirin with meal. The patient is noncompliant. Also explained to go to the emergency room with any chest tightness, chest pain, take four aspirins before then. The patient is to be seen tomorrow in the office. The patient was explained about these findings and advised coronary angiogram. She wants to think about it. The patient is strongly advised to rest until seen in the office tomorrow. CONDITION AT TIME OF DISCHARGE: Stable. The patient's was present in the room when I explained to her that these findings with coronary artery disease, risk factors and how to modify them. TIME SPENT: More than 60 minutes. LENA
--- NOTE | 2018-11-28 10:01 | PN ---
CODING FOR BILLIN11/22/18 LEVEL 5 11/23/18 INTERMEDIATE 11/24/18 INTERMEDIATE 11/25/18 DISCHARGE MTDD
--- NOTE | 2018-12-05 08:03 | HP ---
DATE OF SERVICE: 11/22/18 REASON FOR HOSPITALIZATION/HISTORY OF PRESENT ILLNESS: This is a 63 year old white female who presented to the emergency room with dizziness, hypertension. EKG initially showed nonspecific ST-T wave changes. PAST MEDICAL HISTORY: Hypertension Vertigo Dyslipidemia Anxiety Tobacco use Noncompliance with lifestyle, diet, medications and followup. GERD Anxiety PAST SURGICAL HISTORY: Unknown REVIEW OF SYSTEMS: CONSTITUTIONAL: No night sweats. No fatigue, malaise, lethargy. No fever or chills. HEENT: Eyes: No visual changes. No eye pain. No eye discharge. ENT: No runny nose. No epistaxis. No sinus pain. No sore throat. No odynophagia. No ear pain. No congestion. RESPIRATORY: No cough, no congestion. No hemoptysis. No shortness of breath. CARDIOVASCULAR: No angina symptoms. No CHF symptoms. No atypical chest pain for CAD. No palpitations. No PND. No orthopnea. GASTROINTESTINAL: No abdominal pain. No nausea or vomiting. No diarrhea or constipation. No hematemesis. No hematochezia. GENITOURINARY: No urgency. No frequency. No dysuria. No hematuria. No obstructive symptoms. No discharge. No pain. No significant abnormal bleeding. MUSCULOSKELETAL: No musculoskeletal pain. No joint swelling. No arthritis. NEUROLOGICAL: Headache. No neck pain. No syncope. No seizures. Dizziness. PSYCHIATRIC: Anxious. No depression. No suicidal thoughts. No homicidal thoughts. SKIN: No rash. No lesions. No wounds. ENDOCRINE: No unexplained weight loss. No weight gain. HEMATOLOGIC/LYMPHATIC: No anemia. No purpura. No petechiae. No prolonged or excessive bleeding. No palpable lymph nodes. PERSONAL/FAMILY/SOCIAL HISTORY: The is patient is . She is a smoker. No alcohol or illicit drug use. MEDICATIONS: Centrum Adults one each PO daily Xanax 0.25mg PO twice a day PRN Nexium 40mg PO daily Lipitor 40mg PO QPM Premarin Vaginal Cream 1 application VG as directed Fish Oil 500mg two PO daily Carafate 1gram PO four times a day Fish Oil 500mg one PO QPM ALLERGIES: Acetaminophen Codeine Hydrochlorothiazide Lisinopril Metronidazole Propoxyphene PHYSICAL EXAMINATION: VITAL SIGNS: Temperature 97.4, heart rate 74, respiratory rate 20, blood pressure 221/105, pulse ox 98% on room air. HEENT: Head normocephalic, atraumatic. Eyes: Extraocular muscles are intact. Pupils are equal, round and reactive to light and accommodation. Ears: No lesions. Nose appeared normal. Throat: No exudate or erythema. NECK: Supple. No JVD, no carotid bruit. No lymphadenopathy or thyromegaly. LUNGS: Diminished breath sounds bilaterally. Clear to auscultation. Percussion note normal. Chest symmetrical. HEART: S1, S2, no S3. No murmurs. No cyanosis or clubbing. No ascites. Pulses: Dorsalis pedis and posterior tibial pulses +1 to +2 bilaterally. ABDOMEN: Soft. Nontender. Bowel sounds active. No CVA tenderness. No mass felt. EXTREMITIES: No edema. Full range of motion of all extremities, equal. NEUROLOGIC: No focal deficit. Cranial nerves II through XII are grossly intact. No headache, no double vision or headache. Anxious. SKIN: Not dry. Intact. Turgor - normal. LYMPHATIC: No palpable lymph nodes/no lymphedema. MUSCULOSKELETAL: Normal joints with no swelling. Muscle tone is normal. LABS: WBC 15.43, hgb 14.1, hct 40.9, plt count 244, sodium 142, potassium 4.1, BUN 12.5, creatinine 0.68, glucose 122, Troponin less than 0.012. EKG showed nonspecific ST-T wave changes. ASSESSMENT: 1. Hypertensive emergency 2. Vertigo 3. ST-T wave abnormality 4. Ischemic heart disease 5. Heavy smoker PLAN: 1. We will admit 2. Cardiac markers 3. Routine telemetry orders 4. CBC and CMP daily 5. Low sodium diet 6. Continue all home medications 7. IV Vasotec 1.25 times one 8. Chest x-ray 9. U/A 10.Echo scheduled for in the morning 11. Will follow her closely 12.Information provided regarding smoking cessation. TIME SPENT: More than 70 minutes. [facility]
== END 2018-11-25 14:13 | disposition home or self-care (01) | DRG 316 ==
LOC: ED 12:05 → MEDSURG A 14:53
PROVIDERS: ADMIT Internal Medicine; ATTEND Internal Medicine
DX: R94.31 Abnormal electrocardiogram [ECG] [EKG] (principal); I10 Essential (primary) hypertension; I25.9 Chronic ischemic heart disease, unspecified; E78.5 Hyperlipidemia, unspecified; R11.0 Nausea; F17.210 Nicotine dependence, cigarettes, uncomplicated; F41.9 Anxiety disorder, unspecified; Z72.0 Tobacco use; Z91.19 Patient's noncompliance with other medical treatment and regimen
CPT/HCPCS: 36415; 80053; 82550; 84484; 85025; 93005; 93010; 96360; 96361; 99223; 99232; 99239; 99285